=== PATIENT | female | born 1935 | race Asian ===

== ENCOUNTER 2016-08-09 01:08 | Inpatient (IN) | payer OTHER ==
[~2016-08-09] VITALS: Wt 54.5 kg
[2016-08-09] MEDS ORDERED: SODIUM CHLORIDE 0.9% 1L BAG IV* STA (01:42)
[2016-08-09 02:24] LABS: ADD SCAN DIFF NO
[2016-08-09 02:30] LABS: ABNORMAL IP MESSAGE 1; BASOPHILS % 0.2 % (0.0-2.0); EOSINOPHILS # 0.1 10^3/ul (0.0-0.5); EOSINOPHILS % 0.5 % (0.0-7.0); HEMATOCRIT 35.9 % (37.0-47.0); HEMOGLOBIN 11.9 g/dl (12.0-16.0); LYMPHOCYTES # 0.4 10^3/ul (0.8-2.9); LYMPHOCYTES % 2.8 % (15.0-51.0); MEAN CORPUSCULAR HEMOGLOBIN 31.4 pg (29.0-33.0); MEAN CORPUSCULAR HGB CONC 33.1 g/dl (32.0-37.0); MEAN CORPUSCULAR VOLUME 94.7 fl (82.0-101.0); MEAN PLATELET VOLUME 9.9 fl (7.4-10.4); MONOCYTE # 0.2 10^3/ul (0.3-0.9); MONOCYTES % 1.3 % (0.0-11.0); NEUTROPHIL # 11.9 10^3/ul (1.6-7.5); NEUTROPHILS % 94.4 % (39.0-77.0); NUCLEATED RED BLOOD CELLS # 0.1 10^3/ul (0.0-0.0); NUCLEATED RED BLOOD CELLS% 0.4 /100WBC (0.0-0.0); PLATELET COUNT 409 10^3/UL (140-415); RED BLOOD COUNT 3.79 10^6/ul (4.20-5.40); WHITE BLOOD COUNT 12.6 10^3/ul (4.8-10.8)
[2016-08-09] MEDS ORDERED: CEFTRIAXONE 1 GM/50 ML (PMX) 50 ML IVPB ONE (02:30)
--- NOTE | 2016-08-09 02:35 | RADRPT ---
PROCEDURE: XR Chest. CLINICAL INDICATION: Sepsis. TECHNIQUE: Single frontal chest x-ray. COMPARISON: None. FINDINGS: Heart is enlarged.. There are atherosclerotic calcifications of the aortic knob.. No CHF.. There is mild bilateral hilar peribronchial thickening. No pleural effusion or pneumothorax.. There is dext roscoliosis with degenerative changes of the thoracic spine.. IMPRESSION: Cardiomegaly. Hilar peribronchial thickening consistent with inflammation/bronchitis. RPTAT: HMVK .Ed Rosas MD, Date Time Electronically viewed and signed by .Ed Rosas MD, on 08/09/2016 02:35 .K/
[2016-08-09 02:38] LABS: CHLORIDE 103 mmol/L (97-110)
[2016-08-09 02:39] LABS: ALBUMIN 4.3 g/dl (3.3-4.9); INR 1.06; POTASSIUM 3.5 mmol/L (3.5-5.1); PROTIME 13.8 Sec (12.2-14.2); PT RATIO 1.1; SODIUM 142 mmol/L (135-144)
[2016-08-09 02:40] LABS: PARTIAL THROMBOPLASTIN TIME 30.4 Sec (25.0-35.0)
[2016-08-09 02:41] LABS: CREATININE 0.66 mg/dl (0.44-1.00)
[2016-08-09 02:42] LABS: ALANINE AMINOTRANSFERASE 266 IU/L (13-69); ALBUMIN/GLOBULIN RATIO 1.02; ALKALINE PHOSPHATASE 210 IU/L (42-121); ANION GAP 19 (8-16); ASPARTATE AMINO TRANSFERASE 154 IU/L (15-46); BILIRUBIN,INDIRECT 1.9 mg/dl (0-1.1); BILIRUBIN,TOTAL 5.9 mg/dl (0.2-1.3); BLOOD UREA NITROGEN 15 mg/dl (7-20); CARBON DIOXIDE 24 mmol/L (21-31); GLUCOSE 171 mg/dl (70-220); TOTAL PROTEIN 8.5 g/dl (6.1-8.1)
[2016-08-09 02:43] LABS: CALCIUM 9.3 mg/dl (8.4-10.2)
[2016-08-09 02:54] LABS: TROPONIN-I < 0.012 ng/ml (0.00-0.12)
[2016-08-09 03:48] LABS: ADD UMIC YES; URINE BILIRUBIN (Dip) 2+ (NEGATIVE); URINE BLOOD (Dip) 1+ (NEGATIVE); URINE COLOR AMBER (YELLOW); URINE GLUCOSE (Dip) NEGATIVE (NEGATIVE); URINE KETONES (Dip) NEGATIVE (NEGATIVE); URINE LEUKOCYTE ESTERASE (Dip) 1+ (NEGATIVE); URINE NITRITE (Dip) POSITIVE (NEGATIVE); URINE TOTAL PROTEIN (Dip) TRACE (NEGATIVE); URINE UROBILINOGEN (Dip) 0.2 E.U./dL (0.1-1.0)
[2016-08-09 04:02] LABS: ICTOTEST POSITIVE (NEGATIVE)
[2016-08-09 04:04] LABS: BACTERIA,URINE MANY; SQUAMOUS EPITHELIAL CELL,UR FEW
--- NOTE | 2016-08-09 04:30 | RADRPT ---
PROCEDURE: ULTRASOUND LIMITED ABDOMEN CLINICAL INDICATION: 81-year-old female with abdominal pain. TECHNIQUE: Multiple sonographic of the right upper quadrant of the abdomen were obtained. The imag es were reviewed on a PACS workstation. COMPARISON: None. FINDINGS: The pancreas is not visualized secondary to overlying bowel gas. The liver displays normal echogenicity. The liver measures 14.4 cm in length. No evidence of intrah epatic biliary ductal dilatation is seen. The portal and hepatic veins are unremarkable. The gallbladder is not visualized. No pericholecystic fluid is seen. The common bile duct measures 1 3.0 mm and is dilated. There appears to be echogenic shadowing stones within the common bile duct me asuring 00:11 and 13 mm. The right kidney displays normal echogenicity. The right kidney measures 9.5 cm in maximal length. N o caliectasis or hydronephrosis is seen. No free fluid is seen. IMPRESSION: 1. The gallbladder is not visualized. Clinical correlation is necessary. 2. Dilated common bile duct with choledocholithiasis. .Jordin Solano MD, Date Time Electronically viewed and signed by .Jordin Solano MD, MD on 08/09/2016 04:30 .M/
[2016-08-09 04:39] VITALS: TEMP 99.4
[2016-08-09] MEDS ORDERED: morphine 2 MG INJ IV ONE (05:30)
[2016-08-09] MEDS ORDERED: SOD CHLORIDE 0.9% 1,000 ML IV ONE (05:30)
[2016-08-09] MEDS ORDERED: metroNIDAZOLE 500 MG/NS (PMX) 100 ML IVPB ONE (05:30)
--- NOTE | 2016-08-09 05:57 | RADRPT ---
PROCEDURE: CT ABDOMEN/PELVIS WITHOUT CONTRAST CLINICAL INDICATION: 81-year-old female with abdominal pain. TECHNIQUE: The study was performed utilizing a GE 4Techpeed VCT 64-slice CT scanner. Direct axia l sections were obtained through the abdomen and pelvis without the use of intravenous contrast mate rial. Sagittal and coronal reformations were obtained. One or more of the following dose reduction t echniques were utilized: automated exposure control, adjustment of the mA and/or kV according to pat ient's size or use of iterative reconstruction technique. The images were reviewed on a PACS workst [employer]. CTD/vol = 10.0 mGy; Total Exam DLP = 558.5 mGy-cm. COMPARISON: Right upper quadrant ultrasound August 09, 2016. FINDINGS: Cardiomegaly is present. There is minimal bibasilar subsegmental atelectasis. There is no evidence for significant pleural effusion. The liver has a normal size and contour without focal areas of a bnormal density. No intrahepatic biliary ductal dilatation is seen. The gallbladder is not well visu alized and may be contracted with increased density seen within this region which may represent nonc alcified stones. The common hepatic and common bile ducts appear dilated. The common hepatic duct measures 12.0 cm. The distal common bile duct is dilated measuring 12 mm and contains a focus of in creased density most likely representing a noncalcified gallstone. The pancreas is without areas of abnormal attenuation. The spleen is identified and has a normal size without abnormal density. The adrenal glands are unremarkable. The kidneys are without abnormal density. No hydroureteronephrosis nor nephroureterolithiasis is evident. The urinary bladder contains urine. There is mild scattered retained stool within the colon without obstruction. Multiple diverticula seen within the ascending colon without surrounding inflammatory changes. The appendix is diminutive and is without abnormal thickening or surrounding inflammatory reaction. The uterus is atrophic. There is no significant p elvic free fluid. The aortoiliac vessels are mildly calcified but without aneurysmal dilatation. De generative changes are seen within the spine. There is a left hip arthroplasty. IMPRESSION: 1. Cardiomegaly. 2. The gallbladder is not well visualized and appears to be contracted with increased density withi n this region which may represent noncalcified gallstones with dilated common hepatic and common bettye e ducts with increased density suggestive of choledocholithiasis. Further evaluation with an MRCP w ould be more sensitive. 3. Mild ascending colon diverticulosis. 4. No CT evidence for appendicitis. 5. Vascular calcifications. 6. Degenerative changes within the spine. 7. Left hip arthroplasty. .Jordin Solano MD, Date Time Electronically viewed and signed by .Jordin Solano MD, MD on 08/09/2016 05:57 .M/
[2016-08-09] MEDS ORDERED: ONDANSETRON 4 MG INJ IV PRN (06:00)
[2016-08-09] MEDS ORDERED: ACETAMINOPHEN 325 MG TAB PO PRN (06:00)
--- NOTE | 2016-08-09 06:16 | HP ---
Date/Time of Note Date/Time of Note DATE: 08/09/16 TIME: 06:16 Assessment/Plan Lines/Catheters Urinary Cath still in place: No Assessment/Plan Assessment/Plan 1) Acute Choledocolithiasis HPI/ROS Admit Date/Time Admit Date/Time Hx of Present Illness Choledocolithiasis PMH/Family/Social Social History Smoking Status: Never smoker Exam/Review of Systems Vital Signs Vitals Vital Signs Date Time Temp Pulse Resp B/P Pulse Ox O2 Delivery O2 Flow Rate FiO2 08/09/16 04:39 99.4 117 20 127/61 99 Room Air 2.0 Nasal Cannula Labs Result Diagram: 08/09/16 0135 08/09/16 0135 Medications Medications Current Medications Metronidazole 100 ml @ 100 mls/hr ONCE ONCE IVPB Last administered on 05:38; Admin Dose 100 MLS/HR; Start 08/09/16 at 05:30; Stop 08/09/16 at 06: 29 Sodium Chloride (NS) 1,000 ml @ 1,000 mls/hr Q1H ONCE IV Last administered on 08/09/16 05:39; Admin Dose 1,000 MLS/HR; Start 08/09/16 at 05:30; Stop at 06:29 JANETT ROCK DO Aug 09, 2016 06:16 Date Time Temp Pulse Resp B/P Pulse Ox O2 Delivery O2 Flow Rate FiO2 08/09/16 04:39 99.4 117 20 127/61 99 Room Air 2.0 Nasal Cannula Exam Exam General: Eyes: Sclera White, EOMI HENT: Normocephalic/Atraumatic, External Ears/Nose Normal, Moist Mucus Membranes Neck: Supple, Trachea Midline Cardiovascular: Normal Rate, Regular Rhythm, Normal S1 and S2, No Murmur, No Extra Sounds. Radial pulse +2/4. No pedal Edema. Pulmonary: Clear to Auscultation Bilaterally, Normal Respiratory Effort, No Rales, Rhonchi or Wheezes Gastrointestinal: Normoactive Bowel Sounds, Soft, Non-Tender/Non-Distended, No Hepatosplenomegaly Appreciated, No Pulsatile Masses Urogenital: Deferred Musculoskeletal: Normal Muscle Bulk and Tone Neurological: CN II - XII Grossly Intact, Non-Focal, Speech Normal Integumentary: Normal Moisture and Temperature, Good Turgor, No Jaundice, No Rash Lymphatic: No Cervical Lymphadenopathy Psychiatric: Appropriate Mood and Affect, Good Eye Contact Labs Result Diagram: 08/09/1613408/09/16134 Medications Medications Current Medications Metronidazole 100 ml @ 100 mls/hr ONCE ONCE IVPB Last administered on 05:38; Admin Dose 100 MLS/HR; Start 08/09/16 at 05:30; Stop 08/09/16 at 06: 29 Sodium Chloride (NS) 1,000 ml @ 1,000 mls/hr Q1H ONCE IV Last administered on 08/09/16 05:39; Admin Dose 1,000 MLS/HR; Start 08/09/16 at 05:30; Stop at 06:29 JANETT ROCK DO Aug 09, 2016 06:16
--- NOTE | 2016-08-09 06:34 | ERA ---
ER Documentation Chief Complaint Date/Time DATE: 08/09/16 TIME: 06:20 Chief Complaint abdominal pain/vomiting x 1 day HPI This 81-year-old female presents with abdominal pain, nausea and vomiting that began this evening after eating fish soup and applesauce. Patient had felt fine before reportedly. She denies fever and chills that she has a fever currently. Denies constipation diarrhea. There has been no blood in her vomit. She vomited one episode. Denies any history of abdominal surgery. Does not take medications that she has no medical problems. ROS All systems reviewed and are negative except as per history of present illness. Allergies Allergies: Coded Allergies: No Allergy Information Available (Verified Allergy, Unknown, 08/09/16) PMhx/Soc History of Surgery: No Anesthesia Reaction: No Hx Neurological Disorder: No Hx Respiratory Disorders: No Hx Cardiac Disorders: Yes (htn) Hx Psychiatric Problems: No Hx Miscellaneous Medical Probl: No Hx Alcohol Use: No Hx Substance Use: No Hx Tobacco Use: No Smoking Status: Never smoker Physical Exam Vitals Vital Signs Date Time Temp Pulse Resp B/P Pulse Ox O2 Delivery O2 Flow Rate FiO2 08/09/16 04:39 99.4 117 20 127/61 99 Room Air 2.0 Nasal Cannula 08/09/16 03:57 101.5 115 20 125/57 100 Nasal Cannula 2.0 08/09/16 01:35 102.2 126 20 135/62 99 Nasal Cannula 2.0 08/09/16 01:22 103.6 120 16 145/63 90 Physical Exam Const: [] Mild distress Head: Atraumatic Eyes: Normal Conjunctiva ENT: Normal External Ears, Nose and Mouth. Neck: Full range of motion..~ No meningismus. Resp: Clear to auscultation bilaterally Cardio: Regular tachycardia no murmurs Abd: Soft, mild to moderate epigastric tenderness without guarding or rebound , non distended. Normal bowel sounds. No surgical scars Skin: No petechiae or rashes Back: No midline or flank tenderness Ext: No cyanosis, or edema Neur: Awake and alert oriented 3, no focal deficits. Psych: Normal Mood and Affect Result Diagram: 08/09/16 0135 08/09/16 0135 Results 24 hrs Laboratory Tests Test 08/09/16 01:35 08/09/16 02:10 08/09/16 04:35 White Blood Count 12.610^3/ul Red Blood Count 3.7910^6/ul Hemoglobin 11.9g/dl Hematocrit 35.9% Mean Corpuscular Volume 94.7fl Mean Corpuscular Hemoglobin 31.4pg Mean Corpuscular Hemoglobin Concent 33.1g/dl Red Cell Distribution Width 18.0% Platelet Count 14879^3/UL Mean Platelet Volume 9.9fl Neutrophils % 94.4% Lymphocytes % 2.8% Monocytes % 1.3% Eosinophils % 0.5% Basophils % 0.2% Nucleated Red Blood Cells % 0.4/100WBC Neutrophils # 11.910^3/ul Lymphocytes # 0.410^3/ul Monocytes # 0.210^3/ul Eosinophils # 0.110^3/ul Basophils # 0.010^3/ul Nucleated Red Blood Cells # 0.110^3/ul Prothrombin Time 13.8Sec Prothrombin Time Ratio 1.1 INR International Normalized Ratio 1.06 Activated Partial Thromboplast Time 30.4Sec Sodium Level 142mmol/L Potassium Level 3.5mmol/L Chloride Level 103mmol/L Carbon Dioxide Level 24mmol/L Anion Gap 19 Blood Urea Nitrogen 15mg/dl Creatinine 0.66mg/dl Glucose Level 171mg/dl Lactic Acid Level 1.8mmol/L 1.2mmol/L Calcium Level 9.3mg/dl Total Bilirubin 5.9mg/dl Direct Bilirubin 4.00mg/dl Indirect Bilirubin 1.9mg/dl Aspartate Amino Transf (AST/SGOT) 154IU/L Alanine Aminotransferase (ALT/SGPT) 266IU/L Alkaline Phosphatase 210IU/L Troponin I < 0.012ng/ml Total Protein 8.5g/dl Albumin 4.3g/dl Globulin 4.20g/dl Albumin/Globulin Ratio 1.02 Urine Color GALO Urine Clarity SLIGHTLY CLOUDY Urine pH 6.0 Urine Specific [place] 1.020 Urine Ketones NEGATIVE Urine Nitrite POSITIVE Urine Bilirubin 2+ Urine Ictotest POSITIVE Urine Urobilinogen 0.2 E.U./dL Urine Leukocyte Esterase 1+ Urine Microscopic RBC 2-5/HPF Urine Microscopic WBC 5-10/HPF Urine Squamous Epithelial Cells FEW Urine Bacteria MANY Urine Hemoglobin 1+ Urine Glucose NEGATIVE% Urine Total Protein TRACE Current Medications Medications (Trade) Dose Ordered Sig/Jrody Route PRN Reason Start Time Stop Time Status Last Admin Dose Admin Sodium Chloride 1690 ml 1,690 ml BOLUS OVER 2 HOURS STAT IV* 08/09/16 01:42 08/09/16 01:47 DC 08/09/16 01:55 Ceftriaxone Sodium 50 ml @ 100 mls/hr ONCE ONCE IVPB 08/09/16 02:30 08/09/16 02:59 DC 08/09/16 02:32 Metronidazole 100 ml @ 100 mls/hr ONCE ONCE IVPB 08/09/16 05:30 08/09/16 06:29 08/09/16 05:38 Sodium Chloride (NS) 1,000 ml @ 1,000 mls/hr Q1H ONCE IV 08/09/16 05:30 08/09/16 06:29 08/09/16 05:39 Morphine Sulfate (morphine) 2 mg ONCE ONCE IV 08/09/16 05:30 08/09/16 05:31 DC 08/09/16 05:39 Ondansetron HCl (Zofran Inj) 4 mg ER BRIDGE PRN IV NAUSEA AND/OR VOMITING 08/09/16 06:00 08/10/16 05:59 Acetaminophen (Tylenol Tab) 650 mg ER BRIDGE PRN PO MILD PAIN/FEVER 08/09/16 06:00 08/10/16 05:59 Procedures/MDM Elderly female with acute choledocholithiasis and UTI with sepsis. Septic workup was performed on arrival. Patient was given Rocephin initially. Flagyl was added when diagnosis included acute cholecystitis. She is given 30 mL/kg of IV fluid. She also given Zofran and morphine. This improved her pain and resolved her nausea. She remained tachycardic cardiac all this did improve with the fluid administration. Did not her an extra liter. Patient did not have lactic acidosis but did have a significant elevated bilirubin, elevated LFTs, elevated white blood cell count. I spoke with Dr. Adams, carton filling machine operator who recommended an MRCP and he will see the patient on consult. Spoke with Dr. Feliz will be admitting the patient to telemetry for further monitoring and evaluation. EKG interpretation: Sinus tachycardia rate of 125, normal axis, no ST-T wave changes concerning for acute ischemia, normal intervals. security monitor interpretation: Sinus tachycardia without arrhythmia Chest x-ray interpretation: Cardiomegaly, I see no other acute process, no infiltrates, no pulmonary edema, no pneumothorax, no fractures Upper quadrant ultrasound interpretation: Poorly visualized gallbladder with dilated common bile duct suggesting choledocholithiasis CT abdomen and pelvis interpretation: Choledocholithiasis likely with contracted gallbladder, I see no free air, no obstruction, no fractures. Critical care time 38 minutes: This includes treatment of acute choledocholithiasis and cystitis with sepsis, careful fluid administration, multiple visits is the patient's bedside to reevaluate status, chart review, antibiotic administration, discussion with admitting doctor, carton filling machine operator , patient's . This is not including billable procedures. Departure Diagnosis: Primary Impression: Sepsis Additional Impressions: Choledocholithiasis UTI (urinary tract infection) Acute abdominal pain Vomiting Condition: Serious WILLY ALLEN DO Aug 09, 2016 06:30
[2016-08-09] MEDS ORDERED: ONDANSETRON 4 MG INJ IV ONE (06:42)
[2016-08-09] MEDS ORDERED: NACL 0.9% 3 ML SYG IV SCH (07:00)
[2016-08-09] MEDS ORDERED: morphine 2 MG INJ IV PRN (07:00)
[2016-08-09] MEDS ORDERED: SOD CHLORIDE 0.9% 1,000 ML IV SCH (07:00)
[2016-08-09] MEDS ORDERED: METOCLOPRAMIDE 10 MG INJ IV PRN (07:00)
[2016-08-09] MEDS ORDERED: LORAZEPAM 2 MG INJ IV PRN (07:00)
[2016-08-09] MEDS ORDERED: INDOMETHACIN 50 MG SUPP PR ONE (08:00)
[2016-08-09] MEDS ORDERED: FAMOTIDINE 20 MG INJ IV SCH (09:00)
[2016-08-09] MEDS ORDERED: IOHEXOL 300MG/ML 30 ML BTL ONE (09:37)
[2016-08-09] MEDS ORDERED: GLYCOPYRROLATE 0.4 MG INJ ONE (09:57)
[2016-08-09] MEDS ORDERED: ONDANSETRON 4 MG INJ ONE (09:57)
[2016-08-09] MEDS ORDERED: FENTAnyl 50 MCG/ML VIAL ONE (09:57)
[2016-08-09] MEDS ORDERED: DEXAMETHASONE 4 MG/ML 1 ML INJ ONE (09:57)
[2016-08-09] MEDS ORDERED: CEFAZOLIN 1 GM INJ ONE (09:57)
[2016-08-09] MEDS ORDERED: PROPOFOL 20 ML ONE (09:57)
[2016-08-09] MEDS ORDERED: MIDAZOLAM 1 MG/ML 2 ML INJ ONE (09:57)
[2016-08-09] MEDS ORDERED: NEOSTIGMINE 3 MG/3 ML SYRINGE ONE (09:57)
[2016-08-09] MEDS ORDERED: ROCURONIUM 50 MG INJ ONE (09:57)
[2016-08-09 10:31] VITALS: BP 142/83; PULSE 108; RESP 33
--- NOTE | 2016-08-09 10:58 | CONS ---
Date/Time of Note Date/Time of Note DATE: 08/09/16 TIME: 10:54 Assessment/Plan Assessment/Plan Additional Assessment/Plan Assessment; * Choledocholithiasis by CT and MRCP * Abnormal liver function test with evidence of obstruction * Patient refused therapeutic intervention Plan: * We will sign off from the GI point of view * Deferred decision discharged to hospitalist team Consultation Date/Type/Reason Admit Date/Time Date of Consultation: Aug 09, 2016 Type of Consultation: Gastroenterology Reason for Consultation Choledocholithiasis by CT Jaundice Hx of Present Illness 81-year-old [place] female who speaks no [place]. Information is obtained from the chart as well as the use of a professional translating service. The patient presented to the emergency room complaining of abdominal pain mostly in the upper abdomen, nausea and vomiting. The patient is extremely poor historian at the present time she states that she wants nothing to be done and wants to go home. During evaluation in the emergency room she had a CT of the abdomen as well as an ultrasound that showed evidence of dilatation of the biliary tree and the CT showed suspicion for choledocholithiasis. She was also noticed to have significant abnormality liver function test consistent with biliary obstruction. I was called from the emergency room to evaluate with possible ERCP with therapeutic intervention. Arrangements have been made for ERCP. In the interim the patient underwent MRCP which confirmed choledocholithiasis. Unfortunately as I arrived and attempted to explain to the patient and her family via germination worker at the findings and therapeutic plan the patient as well as her family emphatically refused any type of information as she stated she feels better and wanted to go home. Attempts via germination worker to convey the need for intervention given the findings were unfortunately unsuccessful. Therefore no intervention will be undertaken. From GI point of view I have nothing else to offer and will defer to hospitalist time of discharge Past Medical History Medical History: no pertinent history Past Surgical History Past Surgical Hx: no surgical history Family History Significant Family History: no pertinent family hx Social History Alcohol Use: none Smoking Status: Never smoker Drug Use: none Exam/Review of Systems Vital Signs Vitals Vital Signs Date Time Temp Pulse Resp B/P Pulse Ox O2 Delivery O2 Flow Rate FiO2 08/09/16 07:02 114 28 137/59 96 Nasal Cannula 2.0 08/09/16 04:39 99.4 Exam Constitutional: alert, oriented, well developed, No distress Psych: nl mood/affect, no complaints, other (Not cooperative) Head: atraumatic, normocephalic Eyes: EOMI, PERRL, icteric, nl conjunctiva, nl lids, nl sclera ENMT: nl external ears & nose, nl lips & teeth, nl nasal mucosa & septum Neck: non-tender, supple Respiratory: clear to auscultation, normal air movement Cardiovascular: nl pulses, regular rate and rhythm Gastrointestinal: nl liver, spleen, non-tender, soft Musculoskeletal: nl extremities to inspection, nl gait and stance Extremities: normal pulses Skin: nl turgor, No rash or lesions Lymph: nl lymph nodes Results Result Diagram: 08/09/16 0135 08/09/16 0135 Results 24 hrs Laboratory Tests Test 08/09/16 01:35 08/09/16 02:10 08/09/16 04:35 08/09/16 06:00 White Blood Count 12.6 H Red Blood Count 3.79 L Hemoglobin 11.9 L Hematocrit 35.9 L Mean Corpuscular Volume 94.7 Mean Corpuscular Hemoglobin 31.4 Mean Corpuscular Hemoglobin Concent 33.1 Red Cell Distribution Width 18.0 H Platelet Count 409 Mean Platelet Volume 9.9 Neutrophils % 94.4 H Lymphocytes % 2.8 L Monocytes % 1.3 Eosinophils % 0.5 Basophils % 0.2 Nucleated Red Blood Cells % 0.4 H Neutrophils # 11.9 H Lymphocytes # 0.4 L Monocytes # 0.2 L Eosinophils # 0.1 Basophils # 0.0 Nucleated Red Blood Cells # 0.1 H Prothrombin Time 13.8 Prothrombin Time Ratio 1.1 INR International Normalized Ratio 1.06 Activated Partial Thromboplast Time 30.4 Sodium Level 142 Potassium Level 3.5 Chloride Level 103 Carbon Dioxide Level 24 Anion Gap 19 H Blood Urea Nitrogen 15 Creatinine 0.66 Glucose Level 171 Lactic Acid Level 1.8 1.2 1.1 Calcium Level 9.3 Total Bilirubin 5.9 H Direct Bilirubin 4.00 H Indirect Bilirubin 1.9 H Aspartate Amino Transf (AST/SGOT) 154 H Alanine Aminotransferase (ALT/SGPT) 266 H Alkaline Phosphatase 210 H Troponin I < 0.012 Total Protein 8.5 H Albumin 4.3 Globulin 4.20 H Albumin/Globulin Ratio 1.02 Urine Color GALO Urine Clarity SLIGHTLY CLOUDY Urine pH 6.0 Urine Specific [place] 1.020 Urine Ketones NEGATIVE Urine Nitrite POSITIVE H Urine Bilirubin 2+ H Urine Ictotest POSITIVE Urine Urobilinogen 0.2 E.U./dL Urine Leukocyte Esterase 1+ H Urine Microscopic RBC 2-5 Urine Microscopic WBC 5-10 Urine Squamous Epithelial Cells FEW Urine Bacteria MANY Urine Hemoglobin 1+ H Urine Glucose NEGATIVE Urine Total Protein TRACE Lipase 29 Test 08/09/16 10:11 Bedside Glucose 154 Medications Medications Current Medications Ceftriaxone Sodium 50 ml @ 100 mls/hr Q24H IVPB ; Start 08/10/16 at 02:00 Metronidazole 100 ml @ 100 mls/hr Q6 IVPB ; Start 08/09/16 at 12:00 Sodium Chloride (NS) 1,000 ml @ 80 mls/hr [id number] IV ; Start 08/09/16 at 07:00 Lorazepam (Ativan) 0.5 mg Q6H PRN IV ANXIETY; Start 08/09/16 at 07:00 Metoclopramide HCl (Reglan) 10 mg Q6H PRN IV NAUSEA AND/OR VOMITING; Start at 07:00 Morphine Sulfate (morphine) 2 mg Q4H PRN IV PAIN LEVEL 7-10; Start 08/09/16 at 07:00 Famotidine (Pepcid Iv) 20 mg Q12 IV ; Start 08/09/16 at 09:00 JUAN CONCEPCION MD Aug 09, 2016 10:58
[2016-08-09 11:51] VITALS: BP 128/73; RESP 20
[2016-08-09] MEDS ORDERED: metroNIDAZOLE 500 MG/NS (PMX) 100 ML IVPB SCH (12:00)
[2016-08-09 12:05] VITALS: PULSE 113
--- NOTE | 2016-08-09 12:10 | PDOCDIS ---
Discharge Instructions CONDITION Patient Condition: Fair HOME CARE INSTRUCTIONS: Diet Instructions: Regular ACTIVITY: Activity Restrictions: No Restrictions FOLLOW UP/APPOINTMENTS Appointments F/U WITH YOUR PCP CRISTOBAL COOK Aug 09, 2016 12:10
[2016-08-09] MEDS ORDERED: CIPR500T4 PO (12:11)
--- NOTE | 2016-08-09 12:12 | RADRPT ---
PROCEDURE: MRI MRCP. CLINICAL INDICATION: Abdominal pain pill TECHNIQUE: MRCP was performed without contrast. 3-D/multiplanar reformations and coronal rotating MIP images of the biliary tree were performed by the technologist and at an independent workstation. COMPARISON: CT and ultrasound dated 08/09/2016. FINDINGS: The gallbladder is contracted around stones. There are extensive stones and debris within the commo n hepatic duct and common bile duct with associated dilatation of the common bile duct measuring up to 14 mm and moderate diffuse intrahepatic ductal dilatation. There is no pancreatic ductal dilatat ion or intraluminal filling defect. The remaining visualized portions of the lower chest and abdomen are unremarkable. IMPRESSION: 1. Extensive choledocholithiasis as above with associated moderate diffuse intra and extrahepatic b iliary ductal dilatation. ERCP is recommended for further evaluation. 2. Contracted gallbladder around stones. RPTAT: QQ .Jorge Luis Dang MD, Date Time Electronically viewed and signed by .Jorge Luis Dang MD, MD on 08/09/2016 12:11 .P/
--- NOTE | 2016-08-09 12:57 | HP ---
DATE OF ADMISSION: 08/09/2016 CHIEF COMPLAINT: Abdominal pain. HISTORY OF PRESENT ILLNESS: The patient is an 81-year-old female with a history of hypertension. T he patient has abdominal pain, nausea and vomiting that began after eating fish soup and applesauce. The patient felt fine prior to that. She denies any fever or chills, denies constipation or diar stephania. She denies any blood in her emesis and had one episode of emesis. She denies any history of abdominal surgery and denies any significant medical problems, and denies taking any home meds. In the emergency room, the patient had a gallbladder ultrasound that showed a dilated common bile duct, choledocholithiasis. She had an abdominal pelvic CT that was also suggestive of choledocholithiasi s. The patient was seen by Dr. Adams, who took the patient down for an ERCP, but the patient refus ed to have an ERCP. She refused any surgical intervention. The patient wants to go home. The adelfo ent has no complaints at this time. Denies any abdominal pain at this time. PAST MEDICAL HISTORY: Negative except for possible hypertension. PAST SURGICAL HISTORY: Denies. HOME MEDICATIONS: None. ALLERGIES: NO KNOWN DRUG ALLERGIES. FAMILY HISTORY: Noncontributory. SOCIAL HISTORY: Denies any tobacco, drugs or alcohol. REVIEW OF SYSTEMS: A 12-point review of systems negative except that in the HPI. PHYSICAL EXAMINATION: VITAL SIGNS: T-max was 102.2, T-current is 98.3. Pulse 114, respirations 20, blood pressure is 120 /____, O2 saturation 98% on 2 liters. GENERAL: No acute distress, alert. HEENT: Normocephalic, atraumatic. LUNGS: Clear to auscultation. CARDIOVASCULAR: Regular rate and rhythm. ABDOMEN: Nondistended, nontender, soft. EXTREMITIES: No clubbing, cyanosis, or edema. LABORATORY TESTS: White count 12.6, hemoglobin 11.9, platelets are 409. Chemistry: Sodium is 142, potassium is 3.5, AST is 154, ALT of 66, alkaline phosphatase is 210. Troponin is negative. Lipas e is normal at 29. INR is 1.06. UA is normal except for 1+ leukocyte esterase, nitrites are positi ve. DIAGNOSTICS: Gallbladder ultrasound shows choledocholithiasis. Abdominal pelvis CT shows choledoch olithiasis, mild ascending colon diverticulosis, degenerative changes of the spine and left hip arth roplasty. Chest x-ray shows cardiomegaly with inflammation, bronchitis noted. ASSESSMENT AND PLAN: 1. Abdominal pain secondary to choledocholithiasis. The patient has refused ERCP and she understa nds the risks of refusing any surgical intervention, and she wants to go home. She denies any pain at this time. 2. Transaminitis, likely secondary to choledocholithiasis. Once again, patient is refusing ERCP or surgical intervention. 3. Leukocytosis, possibly secondary to urinary tract infection. Urinalysis suggests possible urina ry tract infection. Patient is denying upper respiratory cough symptoms. I started the patient on antibiotics. 4. Normocytic anemia, mild. 5. Prophylaxis. ____ Dictated By: CRISTOBAL GARCIA/NTS Conf#: [id number] DID#: [id number]
--- NOTE | 2016-08-09 14:49 | DS ---
DATE OF ADMISSION: 08/09/2016 DATE OF DISCHARGE: 08/09/2016 DISCHARGE DIAGNOSES: 1. Abdominal pain secondary to choledocholithiasis. The patient is refusing ERCP or any surgical i ntervention and wants to be discharged home. The patient was told to follow up with her PCP. She u nderstands the risk of refusing procedures. 2. Leukocytosis, likely secondary to a urinary tract infection, as UA did suggest a urinary tract i nfection. The patient is denying any upper respiratory infection symptoms. 3. Transaminitis secondary to choledocholithiasis. The patient needs to follow up with her PCP. HOSPITAL COURSE: The patient is an 81-year-old female with no significant medical history. The pat ient presented with abdominal pain and was found to have choledocholithiasis. She refused ERCP or a ny surgical interventions and only wants to be discharged home. She understands the risks of not in tervening. She does understand the importance of having a followup and to have the ERCP and laparosc opic cholecystectomy. The patient does not want it. The patient denies any pain at this time. Her UA did suggest a UTI. She was started on antibiotics during this hospitalization. The patient was a damant about wanting to go home and states that she will follow up with her PCP. On the day of disc harge, the patient's vitals and labs were not fully stable, as the patient did have a fever. She di d have a white count, but the patient, once again, wants to be discharged anyway and states that she does not want any intervention. Physical exam was stable. She denied any abdominal pain, denied a ny other acute complaints, and her questions were answered. CONDITION ON DISCHARGE: Fair. DISPOSITION: To home. MEDICATIONS: The patient was given a prescription for Cipro 500 mg p.o. b.i.d. for 3 days. FOLLOWUP: The patient needs to follow up with her PCP as soon as possible. Greater than 30 minutes was spent coordinating the discharge of this patient. Dictated By: CRISTOBAL FLORES MD BS/NTS Conf#: [id number] DID#: [id number]
[2016-08-10] MEDS ORDERED: CEFTRIAXONE 1 GM/50 ML (PMX) 50 ML IVPB SCH (02:00)
== END 2016-08-09 15:06 | disposition home or self-care (01) | DRG 445 ==
LOC: E/R 01:08 → MS4 05:53
PROVIDERS: ADMIT Family Medicine; ATTEND Family Medicine
DX: K80.50 Calculus of bile duct without cholangitis or cholecystitis without obstruction (principal); N39.0 Urinary tract infection, site not specified; R11.10 Vomiting, unspecified; D72.829 Elevated white blood cell count, unspecified
CPT/HCPCS: 36415; 71010; 74176; 74181; 76705; 80053; 81001; 81003; 82962; 83605; 83690; 84484; 85025; 85610; 85730; 87040; 87086; 93005; 96374; 96375; J0690; J0696; J1100; J2250; J2270; J2405; J2710; J3010; J7030; P9612; Q9967